=== PATIENT | female | born 1990 | race Caucasian/White ===

== ENCOUNTER 2021-09-14 11:03 | Outpatient (CLI) | payer OTHER, SELFPAY ==
[2021-09-14 12:49] LABS: SARS-CoV-2 RNA PCR Negative (Negative)
== END 2021-09-14 11:04 | disposition home or self-care (01) ==
LOC: CHSLAB 11:09
PROVIDERS: PCP Physician Assistant; Visit Provider Physician Assistant
DX: B34.9 Viral infection, unspecified (principal); Z20.822 Contact with and (suspected) exposure to COVID-19
CPT/HCPCS: C9803; U0003; U0005

== ENCOUNTER 2021-09-25 13:32 | Outpatient (CLI) | payer OTHER, SELFPAY ==
[2021-09-26 20:23] LABS: SARS-CoV-2 RNA PCR Positive
== END 2021-09-25 13:33 | disposition home or self-care (01) ==
LOC: CHSLAB 13:37
PROVIDERS: PCP Physician Assistant; Visit Provider Physician Assistant
DX: U07.1 COVID-19 (principal)
CPT/HCPCS: C9803; U0003; U0005